=== PATIENT | female | born 1960 | race Caucasian/White ===

== ENCOUNTER 2024-12-12 11:44 | Emergency (ER) | payer MEDICAID, SELFPAY ==
--- NOTE | 2024-12-12 11:46 | ECG_ITS ---
[facility]: 2024-12-12 Pat Name: Leela Sandoval Department: Room: Gender: Female Personnel Administrator: : 1960 Requested By: Jennyfer Lainez Order Number: [id number] Ramo MD: Giovanny Sena M.D. Measurements Intervals Joanna Rate: 74 P: 60 AL: 172 QRS: 32 QRSD: 93 T: 32 QT: 376 QTc: 419 Interpretive Statements SINUS RHYTHM LOW QRS VOLTAGE IN PRECORDIAL LEADS [QRS DEFLECTION < 1.0 mV IN CHEST LEADS] No previous ECG available for comparison Electronically Signed On 12-13-2024 09:12:12 CDT by Giovanny Sena M.D. [email or web address]
[2024-12-12 11:47] VITALS: BP 123/81; PULSE 79; RESP 17; TEMP 36.7; O2SAT 97; BMI 34.3
--- OUTSIDE RECORDS SUMMARY | 2024-12-12 11:53 | XMS_ITS | Patient Health Record ---
Author Organization [facility] Physician Group Address [address] [facility] [address] [place] [place] [address] Care Team Providers Care State Attorney Name Role Phone Raquel Gardner APRN Primary Care Provider Unav Rosa Toribio Unavailable [phone] Reason For Referral No Information Plan Of Treatment No Information Insurance Providers Payer Name Payer Address Payer Phone Subscriber Number Group Number Insured Name Patient Relationship to Insured Coverage Start Date Coverage End Date [place] [address] [place] [id number] Leela So Other
--- OUTSIDE RECORDS SUMMARY | 2024-12-12 11:53 | XMS_ITS | Clinical Summary ---
Author Organization [facility] Address [address] [place] [address] Phone Care Team Providers Care Distributor Of Directories Name Role Phone Raquel Gardner [employer] Primary Care Provider Allergies No known active allergies Medications ergocalciferol (DRISDOL) 50,000 unit capsule Take one capsule (50,000 Units total) by mouth once a week Active clonazePAM (KLONOPIN) 1 MG tablet Take one tablet (1 mg total) by mouth 2 (two) times a day as needed for anxiety Active DULoxetine (CYMBALTA) [address] capsule Take one capsule (60 mg total) by mouth one (1) time a day Active furosemide (LASIX) 20 MG tablet Take one tablet (20 mg total) by mouth 2 (two) times a day Active pregabalin (LYRICA) 100 MG capsule Take one capsule (100 mg total) by mouth 2 (two) times a day Active loratadine (CLARITIN) 10 mg tablet Take one tablet (10 mg total) by mouth one (1) time a day Active Social History Tobacco Use Types Packs/Day Years Used Date Smoking Tobacco: Never Assessed Comments Unknown Sex and Gender Information Value Date Recorded Sex Assigned at Not on file Legal Sex Female 1:13 PM CDT Gender Identity Not on file Sexual Orientation Not on file Last Filed Vital Signs Vital Sign Reading Time Taken Comments Blood Pressure 106/78 10/18/2023 1:28 PM CDT Pulse 125 10/18/2023 1:28 PM CDT Temperature 36.3 C (97.4 F) 10/18/2023 1:28 PM CDT Respiratory Rate - - Oxygen Saturation 96% 10/18/2023 1:28 PM CDT Inhaled Oxygen Concentration - - Weight 99.8 kg (220 lb) 10/18/2023 1:28 PM CDT Height 167.6 cm (5' 6 ) 10/18/2023 1:28 PM CDT Body Mass Index 35.51 10/18/2023 1:28 PM CDT Plan of Treatment Health Maintenance Due Date Last Done Comments Colonoscopy Every 6 Months 1960 Colorectal Cancer Screening Annual FOBT/FIT Test 06/08 Colorectal Cancer Screening Cologuard 1960 Colorectal Cancer Screening Flex Sigmoidoscopy 963 Annual Depression Screening 1973 Annual Physical 1980 Hepatitis C Antibody Screen 1980 DTap/Tdap/Td Vaccines (1 - Tdap) 1981 Cervical Cancer Screening 06/09/1983 Mammogram 2002 Colorectal CA Screen 10 Year Colonoscopy 06/09/2007 Colorectal Cancer Screening 06/09/2007 Pneumococcal Vaccine Age 50+ (1 of 1 - PCV) 2012 Zoster Vaccine (Shingles) (1 of 2) 2012 Flu Vaccine (#1) 12/09/2024 Influenza Vaccine 12/09/2024 RSV Immunization Pa tients or 60+ Years (1 - 1-dose 75+ series) 2037 Insurance MEDICAID [place] Care Teams Distributor Of Directories Relationship Specialty Start Date End Date Raquel Gardner NP [address] [place] [address] [place] [id number] PCP - General Nurse Practitioner 11/09/23
--- NOTE | 2024-12-12 12:01 | XR_ITS ---
WS: [id number] Portable AP upright chest, 12/12/2024 Clinical Data: cp Comparison: Two-view chest, 06/22/2004. Findings: No nodules, masses or effusions are seen. The heart is normal. The pulmonary vascularity is not increased. No pneumonia or pneumothorax is seen. XR/XR chest 1V portable [id number] Impression: Negative chest.
--- NOTE | 2024-12-12 12:18 | ED_ITS ---
HPI - Chest Pain 2 General: Chief Complaint: Chest Pain Stated Complaint: CP, leg swollen, pain in ankle Time Seen by Provider: 12/12/24 12:00 Source: patient Mode of arrival: ambulatory Limitations: no limitations History of Present Illness: 64-year-old female states she been havin g swelling to her bilateral legs over the last week states she been having some pain in both legs as well. States she has had some what she states is a fluttering feeling in her chest palpitations at times she denies any chest pain she denies any shortness of breath Associated symptoms: Reports dyspnea; Deny abdominal pain, fever(s), nausea or vomiting Related Data Home Medications ?Medication ?Instructions ?Recorded ?Confirmed amitriptyline 10 mg tablet mg 12/12/24 Allergies Allergy/AdvReac Type Severity Reaction Status Date / Time ibuprofen Allergy ALGY-Rash Verified 12/12/24 11:59 Review of Systems 2 Const: Denies: fever(s), chills, body aches or change in appetite ENMT: Denies: throat pain or dental pain Card: Reports: chest pain Resp: Reports: dyspnea GI: Denies: abdominal pain, nausea, vomiting or diarrhea : Denies: dysuria Musc: Denies: neck pain or back pain Skin/Breast: Denies: rash Neuro: Denies: headache(s) Physical Exam 2 Const: COMMON NORMALS: no acute distress, patient oriented x3 and healthy appearing HENMT: COMMON NORMALS: normocephalic and atraumatic HEAD & SCALP: n ormocephalic and atraumatic Eye: COMMON NORMALS: conjunctivae normal CONJUNCTIVA: Yes conjunctivae normal Neck/C-Spine: COMMON NORMALS: full ROM and supple Chest: COMMONS NORMALS: normal inspection of the chest Resp: COMMON NORMALS: normal respiratory effort, No retractions, No use of accessory muscles and clear to auscultation bilaterally AUSCULTATION: clear to auscultation bilaterally Cardio: COMMON NORMALS: regular rate, regular rhythm and No murmurs present (Cardio) RATE: regular rate RHYTHM: regular rhythm Extremity: COMMON NORMALS: full ROM NARRATIVE EXTREMITY EXAM: Mild edema to lower extremities distal pulses sensation intact Neuro: COMMON NORMALS: patient oriented x3, moves all extremities and no focal motor deficits Psych: COMMON NORMALS: mental status grossly normal, Normal thought process present and cooperative THOUGHT PROCESS: Normal thought process present Skin: COMMON NORMALS: no rashes or lesions noted and no wounds GENERAL SKIN EXAM: no rashes or lesions noted Course 2 Vital Signs: Vital signs: Vital Signs Temperature 98.1 F 12/12/24 11:47 Pulse Rate 79 12/12/24 11:47 Respiratory Rate 17 12/12/24 11:47 Blood Pressure 123/81 12/12/24 11:47 Pulse Oximetry 97 12/12/24 11:47 Oxygen Delivery Me thod Room Air 12/12/24 11:47 MDM - Chest Pain Medical Decision Making Patient presents here with lower extremity edema some mild in nature she was given Lasix here BNP is normal send no chest pain troponin here is normal no signs of ACS no signs of PE she stable for discharge follow-up PCP return if worsening. Medical Records I reviewed the patient's medical records. Lab Data I reviewed the patient's lab results. 12/12/24 12:21 12/12/24 12:21 Radiology Impressions Chest X-Ray 12/12/24 12:01 Impression: Negative chest. Laboratory Results WBC 6.11 10^3/uL (3.29-11.43) 12/12/24 12:21 RBC 4.94 10^6/uL (3.85-5.65) 12/12/24 12:21 Hgb 14.40 g/dL (11.27-16.99) 12/12/24 12:21 Hct 43.1 % (36-47) 12/12/24 12:21 MCV 87.2 fl (85-98) 12/12/24 12:21 MCH 29.1 pg (27-33) 12/12/24 12:21 MCHC 33.4 g/dL (30-55) 12/12/24 12:21 RDW 12.9 % (12.1-15.1) 12/12/24 12:21 Plt Count 176 10^3/cmm (157-399) 12/12/24 12:21 MPV 12.0 fL (7.4-10.4) H 12/12/24 12:21 Neut % (Auto) 52.1 % 12/12/24 12:21 Lymph % (Auto) 36.3 % 12/12/24 12:21 [place] % (Auto) 7.5 % 12/12/24 12:21 Eos % (Auto) 3.1 % 12/12/24 12:21 Baso % (Auto) 0.8 % 12/12/24 12:21 Neut # (Auto) 3.18 10^3/uL (1.8-7.7) 12/12/24 12:21 Lymph # (Auto) 2.2 10^3/uL (0.8-4.8) 12/12/24 12:21 [place] # (Auto) 0.5 10^3/uL (0.2-0.9) 12/12/24 12:21 Eos # (Auto) 0.2 10^3/uL (0.0-0.8) 12/12/24 12:21 Baso # (Auto) 0.1 10^3/uL (0.0-0.1) 12/12/24 12:21 Nucleated RBC % (auto) 0 % 12/12/24 12:21 Nucleated RBCs # 0.0 /100WBC 12/12/24 12:21 PT 12.00 SECONDS (12.1-14.9) L 12/12/24 12:21 INR 0.83 (0.8-1.2) 12/12/24 12:21 Sodium 138 mmol/L (136-145) 12/12/24 12:21 Potassium 4.6 mmol/L (3.5-5.1) 12/12/24 12:21 Chloride 102 mmol/L (98-107) 12/12/24 12:21 Carbon Dioxide 27 mmol/L (22-29) 12/12/24 12:21 Anion Gap 13.6 (5-19) 12/12/24 12:21 BUN 14 mg/dL (8-23) 12/12/24 12:21 Creatinine 0.6 mg/dL (0.5-0.9) 12/12/24 12:21 GFR Calculation 101.3 mL/min (90-130) 12/12/24 12:21 Glucose 88 mg/dL (65-115) 12/12/24 12:21 Calculated Osmolality 286 mOsm/kg (285-295) 12/12/24 12:21 Calcium 9.2 mg/dL (8.5-10.5) 12/12/24 12:21 Total Bilirubin 0.5 mg/dL (0.15-1.2) 12/12/24 12:21 AST 25 U/L (0-32) 12/12/24 12:21 ALT 15 U/L (0-33) 12/12/24 12:21 Alkaline Phosphatase 101 U/L (35-105) 12/12/24 12:21 Troponin T Baseline < 6 ng/L (0-10) 12/12/24 12:21 Total Protein 6.4 g/dL (6.6-8.7) L 12/12/24 12:21 Albumin 4.1 g/dL (3.5-5.2) 12/12/24 12:21 Globulin 2.3 g/dL (1.3-4.6) 12/12/24 12:21 Lipase 27 U/L (13-60) 12/12/24 12:21 All radiology interpretation(s) finalized by discharge EKG Data EKG 1: I personally reviewed and interpreted this EKG as follows: EKG interpretation date: 12/12/24 EKG interpretation time: 11:55 Interpretation: nsr hr [address] elevation qrs 93 qtc 404 Discharge Plan Discharge Patient Disposition: Home Clinical Impression: Bilateral edema of lower extremity Condition: Stable Prescriptions: No Action amitriptyline 10 mg tablet Discharge Orders: Discharge ED (Routine); Ordered 12/12/24 Ordered By: Jennyfer Lainez Discharge Diet: Advance as tolerated Discharge Activity: Resume usual activity Patient Instructions: Leg Edema (ED) Print Language: Prydeinig Coding Level of Care Code ED Aircraft Delivery Checker for Dari Moreira
[2024-12-12 12:44] LABS: Hematocrit 43.1 % (36-47); Hemoglobin 14.40 g/dL (11.27-16.99); Mean Corpuscular HGB Conc 33.4 g/dL (30-55); Mean Corpuscular Hemoglobin 29.1 pg (27-33); Mean Corpuscular Volume 87.2 fl (85-98); Nucleated Red Blood Cells % 0 %; Platelet Count 176 10^3/cmm (157-399); Red Blood Count 4.94 10^6/uL (3.85-5.65); White Blood Count 6.11 10^3/uL (3.29-11.43)
[2024-12-12] MEDS: morphine 4 mg/mL SDV 1 mL IVP (12:45)
[2024-12-12] MEDS: FUROsemide 10 mg/mL SDV 4mL 40 MG IVP (12:45)
[2024-12-12] MEDS: ondansetron 2 mg/ML SDV 2 mL 4 MG IVP (12:45)
[2024-12-12 13:02] LABS: INR 0.83 (0.8-1.2); Prothrombin Time 12.00 SECONDS (12.1-14.9)
[2024-12-12 13:08] LABS: Troponin(5th) Baseline < 6 ng/L (0-10)
[2024-12-12 13:21] LABS: Alanine Aminotransferase 15 U/L (0-33); Albumin Level 4.1 g/dL (3.5-5.2); Alkaline Phosphatase 101 U/L (35-105); Anion Gap 13.6 (5-19); Aspartate Amino Transferase 25 U/L (0-32); Blood Urea Nitrogen 14 mg/dL (8-23); Calcium 9.2 mg/dL (8.5-10.5); Carbon Dioxide 27 mmol/L (22-29); Chloride 102 mmol/L (98-107); Creatinine Clr Calc Pharmacy 113.9163; Globulin 2.3 g/dL (1.3-4.6); Glucose 88 mg/dL (65-115); Lipase 27 U/L (13-60); Osmolality Calculated 286 mOsm/kg (285-295); Potassium 4.6 mmol/L (3.5-5.1); Sodium 138 mmol/L (136-145); Total Protein 6.4 g/dL (6.6-8.7)
[2024-12-12 14:15] VITALS: BP 123/79; PULSE 86; O2SAT 92
== END 2024-12-12 14:19 | disposition home or self-care (01) ==
PROVIDERS: Emergency Provider Emergency Medicine
DX: R60.0 Localized edema (principal)
CPT/HCPCS: 36415; 71045; 80053; 83690; 84484; 85025; 85610; 93005; 96374; 96375; 99285; J1938; J2270; J2405